=== PATIENT | female | born 1975 | race Caucasian/White ===

== ENCOUNTER 2020-01-08 16:04 | Emergency (ER) | payer SELFPAY ==
[2020-01-08 17:27] LABS: Absolute Lymphocytes (CBC) 2.3 K/uL (0.7-4.9); Basophils % 0.9 % (0-1.3); Hematocrit 40.3 % (36.0-45.0); Lymphocytes % 29.5 % (15.3-44.8); MPV 8.7 fL (7.6-11.3); RBC Red Blood Cell Count 4.08 M/uL (3.86-4.86)
[2020-01-08] MEDS ORDERED: MORPHINE 4 MG/ML SYR ONE (17:27)
[2020-01-08] MEDS ORDERED: ONDANSETRON 4 MG/2 ML VIAL ONE (17:28)
[2020-01-08 17:41] LABS: Urine Blood NEGATIVE (NEG); Urine Glucose NEGATIVE (NEG); Urine Protein NEGATIVE (NEG)
--- NOTE | 2020-01-08 17:44 | RAD REPORT ---
EXAM DESCRIPTION: CT - Stone Protocol - 01/08/2020 5:29 pm CLINICAL HISTORY: Flank pain. FLANK PAIN COMPARISON: Abdomen Pelvis W Contrast dated 06/02/2017; CT-STONE PROTOCOL dated 05/27/2012 TECHNIQUE: Axial images were obtained without oral or IV contrast. Lack of contrast limits solid org an and vascular assessment. The [id number] spans the entirety of the system partially obscuring uppermost abdomen and lung bases. Coronal reformatted images were obtained and reviewed. All CT scans are performed using dose optimization technique as appropriate and may include automated exposure control or mA/KV adjustment according to patient size. FINDINGS: The lower lung gayle are clear. Cholecystectomy clips. Imaged portions of the liver and spleen show no suspicious findings on non-contrast imaging. The panc reas and adrenal glands are normal. No pathologic lymphadenopathy in the abdomen or pelvis. 17 mm stone is present in the inferior calyx right kidney. Additional punctate seen right-sided marlena ceal calculi also noted. Several punctate left renal calculi noted without hydronephrosis. No obstruc ting calculus seen on the left. No bowel obstruction, free air, free fluid or abscess. Normal appendix noted. No significant bony abnormality. 37 mm left ovarian follicle noted. IMPRESSION: Bilateral nephrolithiasis is seen without hydronephrosis. Largest stone measures 17 mm i n the inferior calyx right kidney and is unchanged relative to comparative study.
--- NOTE | 2020-01-08 17:46 | ER ---
Nurse's Notes [facility] Name: Ariella Ray Age: 44 yrs Sex: Female : 1975 Arrival Date: 01/08/2020 Time: 16:09 Bed 5 Private MD: Diagnosis: Urinary tract infection, site not specified Presentation: 01/07 16:41 Chief complaint: Patient states: L side pain that radiates to abdomen, nausea, ph decreased urination, low grade fever, reports hx of kidney stones, denies V/D, symptoms began last night. Coronavirus screen: Patient denies a cough. Patient denies shortness of breath or difficulty breathing. Patient reports a measured and/or subjective temperature greater than 100.4F. Patient denies travel on a cruise ship or to a country the [facility] currently lists as an affected area. Patient denies contact with known and/or suspected case of COVID-19. Ebola Screen: No symptoms or risks identified at this time. Initial Sepsis Screen: Does the patient meet any 2 criteria? No. Patient's initial sepsis screen is negative. Risk Assessment: Do you want to hurt yourself or someone else? Patient reports no desire to harm self or others. Onset of symptoms was January 08, 2020. 16:41 Method Of Arrival: Ambulatory ph 16:41 Acuity: TIEN 3 ph 16:58 Initial Sepsis Screen: Does the patient have a suspected source of infection? No. ca1 Patient's initial sepsis screen is negative. 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 - Social history:: Smoking status: Patient/guardian denies using tobacco, Stopped _ months ago 8. Screenin:57 Abuse screen: Denies threats or abuse. Denies injuries from another. Nutritional ca1 screening: No deficits noted. Tuberculosis screening: No symptoms or risk factors identified. Fall Risk IV access (20 points). Assessment: 16:57 General: Appears in no apparent distress. comfortable, Behavior is calm, cooperative, ca1 appropriate for age. Pain: Complains of pain in posterior aspect of left lateral abdomen and anterior aspect of left lateral abdomen Pain currently is 7 out of 10 on a pain scale. Pain began this morning Is intermittent. Neuro: Level of Consciousness is awake, alert, obeys commands, Oriented to person, place, time, situation. Cardiovascular: Heart tones S1 S2 present Capillary refill < 3 seconds Patient's skin is warm and dry. Respiratory: Airway is patent Respiratory effort is even, unlabored, Respiratory pattern is regular, symmetrical. GI: Abdomen is flat, non-distended, Bowel sounds present X 4 quads. Abd is soft X 4 quads Abdomen is tender to palpation in posterior aspect of left lateral abdomen and anterior aspect of left lateral abdomen Reports nausea. : No signs and/or symptoms were reported regarding the genitourinary system. EENT: No signs and/or symptoms were reported regarding the EENT system. Derm: Skin is intact, is healthy with good turgor, Skin is pink, warm \T\ dry. Musculoskeletal: Circulation, motion, and sensation intact. Capillary refill < 3 seconds. 17:55 Reassessment: Patient appears in no apparent distress at this time. Patient and/or ca1 family updated on plan of care and expected duration. Pain level reassessed. Patient is alert, oriented x 3, equal unlabored respirations, skin warm/dry/pink. Vital Signs: 16:41 BP 148 / 82; Pulse 94; Resp 18; Temp 99.2(TE); Pulse Ox 99% on R/A; Weight 67.13 kg; ph Height 5 ft. 7 in. (170.18 cm); Pain 7/10; 17:55 BP 152 / 80; Pulse 89; Resp 15 S; Pulse Ox 100% on R/A; ca1 16:41 Body Mass Index 23.18 (67.13 kg, 170.18 cm) ph ED Course: 16:09 Patient arrived in ED. fj1 16:26 Sonali Valle [facility]C [facility] kb 16:26 Mitch Narvaez MD is Attending Physician. kb 16:44 Triage completed. ph 16:44 Arm band placed on Patient placed in waiting room, Patient notified of wait time. ph 16:53 Acob, Judith, RN is Primary Nurse. ca1 16:57 Patient has correct armband on for positive identification. Bed in low position. Call ca1 light in reach. Side rails up X 1. Pulse ox on. NIBP on. Warm blanket given. 17:13 Urine Microscopic Only Sent. ca1 17:13 No provider procedures requiring assistance completed. Initial lab(s) drawn, by me, ca1 sent to lab. Inserted saline lock: 20 gauge in left antecubital area, using aseptic technique. Blood collected. 17:29 CT Stone Protocol In Process Unspecified. EDMS 18:04 IV discontinued, intact, bleeding controlled, No redness/swelling at site. Pressure ca1 dressing applied. Administered Medications: 17:20 Drug: Zofran (Ondansetron) 4 mg Route: IVP; Site: left antecubital; ca1 18:00 Follow up: Response: No adverse reaction; Nausea is decreased ca1 17:22 Drug: morphine 4 mg {Note: rass 0.} Route: IVP; Site: left antecubital; ca1 18:00 Follow up: Response: No adverse reaction; Pain is decreased; RASS: Alert and Calm (0) ca1 17:47 Drug: Rocephin 1 grams Route: IV; Rate: calculated rate; Site: left antecubital; ca1 18:00 Follow up: Response: No adverse reaction; IV Status: Completed infusion ca1 Outcome: 17:45 Discharge ordered by . kb 18:04 Discharged to home ambulatory. ca1 18:04 Condition: stable 18:04 Discharge instructions given to patient, Instructed on discharge instructions, follow up and referral plans. no drinking with medication, no driving heavy equipment, Demonstrated understanding of instructions, follow-up care, medications, Prescriptions given X 3. 18:06 Patient left the ED. ca1 Addendum: 01/11/2020 07:41 Addendum: Culture Results: Positive urine culture. No further action required. Bacteria a a5 sensitive to prescribed antibiotic. Signatures: Dispatcher [employer] EDMS Sonali Valle FNP-C FNP-Ckb Calderon, Audri, RN RN aa5 Nora Etienne RN RN Judith Layton RN RN ca1 Sergio aDn [facility]
--- NOTE | 2020-01-08 17:46 | EDPHYS ---
Physician Documentation [facility] Name: Ariella Ray Age: 44 yrs Sex: Female : 1975 Arrival Date: 01/08/2020 Time: 16:09 Bed 5 Private MD: LORI Physician Mitch Narvaez HPI: 01/07 17:21 This 44 yrs old Female presents to ER via Ambulatory with complaints of SIDE kb PAIN. 17:21 The patient complains of pain in the left flank. The pain radiates to the left upper kb quadrant and left lower quadrant. Onset: The symptoms/episode began/occurred this morning. Modifying factors: The symptoms are alleviated by nothing. the symptoms are aggravated by nothing. Associated signs and symptoms: Pertinent positives: fever, urinary frequency, Pertinent negatives: diarrhea, dizziness, dysuria, headache, hematuria, nausea, pain radiating to the lower extremities, vomiting. Severity of pain: At its worst the pain was moderate in the emergency department the pain is unchanged. The patient has experienced similar episodes in the past. The patient has not recently seen a physician. Pt reports left flank pain and left abd pain that started this morning. fever started a few days ago. reports urinary frequency and small amounts. . 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 - Social history:: Smoking status: Patient/guardian denies using tobacco, Stopped _ months ago 8. ROS: 17:19 Constitutional: Negative for fever, chills, and weight loss, Cardiovascular: Negative kb for chest pain, palpitations, and edema, Respiratory: Negative for shortness of breath, cough, wheezing, and pleuritic chest pain, Back: Negative for injury and pain, MS/Extremity: Negative for injury and deformity, Skin: Negative for injury, rash, and discoloration, Neuro: Negative for headache, weakness, numbness, tingling, and seizure. 17:19 Abdomen/GI: Positive for abdominal pain, Negative for nausea, vomiting, and diarrhea, constipation. 17:19 : Positive for flank pain, urinary frequency, small amounts, difficulty urinating. Exam: 17:19 Constitutional: This is a well developed, well nourished patient who is awake, alert, kb and in no acute distress. Head/Face: Normocephalic, atraumatic. Chest/axilla: Normal chest wall appearance and motion. Nontender with no deformity. No lesions are appreciated. Cardiovascular: Regular rate and rhythm with a normal S1 and S2. No gallops, murmurs, or rubs. Normal PMI, no JVD. No pulse deficits. Respiratory: Lungs have equal breath sounds bilaterally, clear to auscultation and percussion. No rales, rhonchi or wheezes noted. No increased work of breathing, no retractions or nasal flaring. Skin: Warm, dry with normal turgor. Normal color with no rashes, no lesions, and no evidence of cellulitis. MS/ Extremity: Pulses equal, no cyanosis. Neurovascular intact. Full, normal range of motion. Neuro: Awake and alert, GCS 15, oriented to person, place, time, and situation. Cranial nerves II-XII grossly intact. Motor strength 5/5 in all extremities. Sensory grossly intact. Cerebellar exam normal. Normal gait. 17:19 Abdomen/GI: Inspection: abdomen appears normal, Bowel sounds: normal, in all quadrants, Palpation: soft, in all quadrants, moderate abdominal tenderness, in the left upper quadrant and left lower quadrant. 17:19 Back: CVA tenderness, that is moderate, is noted on the left. Vital Signs: 16:41 BP 148 / 82; Pulse 94; Resp 18; Temp 99.2(TE); Pulse Ox 99% on R/A; Weight 67.13 kg; ph Height 5 ft. 7 in. (170.18 cm); Pain 7/10; 17:55 BP 152 / 80; Pulse 89; Resp 15 S; Pulse Ox 100% on R/A; ca1 16:41 Body Mass Index 23.18 (67.13 kg, 170.18 cm) ph MDM: 16:52 Patient medically screened. kb 17:19 Data reviewed: vital signs, nurses notes. Data interpreted: Pulse oximetry: on room air kb is 99 %. Interpretation: normal. 17:43 Counseling: I had a detailed discussion with the patient and/or guardian regarding: the kb historical points, exam findings, and any diagnostic results supporting the discharge/admit diagnosis, lab results, radiology results, the need for outpatient follow up, a family practitioner. 01/07 16:47 Order name: Urine Microscopic Only 01/07 16:53 Order name: Basic Metabolic Panel; Complete Time: 17:36 kb 01/07 16:53 Order name: CBC with Diff; Complete Time: 17:43 kb 01/07 17:04 Order name: Urine Dipstick--Ancillary (enter results); Complete Time: 17:42 mt 01/07 17:16 Order name: Urine --Ancillary (enter results); Complete Time: 17:42 mt 01/07 17:57 Order name: Urine Culture EDDC 01/07 16:47 Order name: Urine Dipstick-Ancillary (obtain specimen); Complete Time: 17:12 kb 01/07 16:47 Order name: CT Stone Protocol 01/07 16:53 Order name: IV Saline Lock; Complete Time: 17:12 kb 01/07 16:53 Order name: Labs collected and sent; Complete Time: 17:13 kb Administered Medications: 17:20 Drug: Zofran (Ondansetron) 4 mg Route: IVP; Site: left antecubital; ca1 18:00 Follow up: Response: No adverse reaction; Nausea is decreased ca1 17:22 Drug: morphine 4 mg {Note: rass 0.} Route: IVP; Site: left antecubital; ca1 18:00 Follow up: Response: No adverse reaction; Pain is decreased; RASS: Alert and Calm (0) ca1 17:47 Drug: Rocephin 1 grams Route: IV; Rate: calculated rate; Site: left antecubital; ca1 18:00 Follow up: Response: No adverse reaction; IV Status: Completed infusion ca1 Disposition: 18:12 Co-signature as Attending Physician, Mitch Narvaez MD I agree with the assessment and chucho plan of care. Disposition: 01/08/20 17:45 Discharged to Home. Impression: Urinary tract infection, site not specified. - Condition is Stable. - Discharge Instructions: Urinary Tract Infection, Adult, [id number]. - Prescriptions for Augmentin 875- 125 mg Oral Tablet - take 1 tablet by ORAL route every 12 hours for 10 days; 20 tablet. Zofran 4 mg Oral Tablet - take 1 tablet by ORAL route every 6 hours As needed; 20 tablet. Tramadol 50 mg Oral Tablet - take 1 tablet by ORAL route every 8 hours as needed; 12 tablet. - Medication Reconciliation Form, Thank You Letter, Antibiotic Education, Prescription Opioid Use form. - Follow up: Emergency Department; When: As needed; Reason: Worsening of condition. Follow up: Private Physician; When: 2 - 3 days; Reason: Recheck today's complaints, Continuance of care, Re-evaluation by your physician. Signatures: Dispatcher [employer] EDMS Sonali Valle, COMMERCIAL ELECTRICIAN-C MARVEL-Mitch Jane MD MD cha Hall, Patricia RN RN Judith Layton RN RN ca1 Corrections: (The following items were deleted from the chart) 18:06 17:45 01/08/2020 17:45 Discharged to Home. Impression: Urinary tract infection, site ca1 not specified. Condition is Stable. Discharge Instructions: Urinary Tract Infection, Adult, [id number]. Prescriptions for Augmentin 875-125 mg Oral Tablet - take 1 tablet by ORAL route every 12 hours for 10 days; 20 tablet, Zofran 4 mg Oral Tablet - take 1 tablet by ORAL route every 6 hours As needed; 20 tablet, Tramadol 50 mg Oral Tablet - take 1 tablet by ORAL route every 8 hours as needed; 12 tablet. and Forms are Medication Reconciliation Form, Thank You Letter, Antibiotic Education, Prescription Opioid Use. Follow up: Emergency Department; When: As needed; Reason: Worsening of condition. Follow up: Private Physician; When: 2 - 3 days; Reason: Recheck today's complaints, Continuance of care, Re-evaluation by your physician. kb
[2020-01-08] MEDS ORDERED: CEFTRIAXONE/SWI 1gm 1 GM/10 ML SYR ONE (17:52)
[2020-01-08 17:55] LABS: Urine Bacteria LOADED /HPF (<20); Urine Culture Reflex Order REFLEXED; Urine RBC NONE SEEN /HPF (NONE SEEN)
[2020-01-08 18:57] VITALS: TEMP 99.2
[2020-01-08 18:58] VITALS: BP 152/80; O2SAT 100
== END 2020-01-08 18:06 | disposition home or self-care (01) ==
LOC: ER 16:04
DX: N39.0 Urinary tract infection, site not specified (principal); Z88.1 Allergy status to other antibiotic agents; Z88.2 Allergy status to sulfonamides; Z88.6 Allergy status to analgesic agent
CPT/HCPCS: 36415; 74176; 76377; 80048; 81003; 81015; 81025; 85025; 87077; 87086; 87088; 87186; 96374; 96375; 99284; J0696; J2405

== ENCOUNTER 2020-10-28 14:35 | Emergency (ER) | payer SELFPAY ==
--- OUTSIDE RECORDS SUMMARY | 2020-10-28 14:38 | XMS REPORT | Continuity of Care Document ---
:1975 Author Organization [facility] t Address [address] [place] [address] [address] [place] [address] Care Team Providers Name Role Phone Unavailable Unavailable Unavailable Problems This patient has no known problems. Allergies, Adverse Reactions, Alerts This patient has no known allergies or adverse reactions. Medications This patient has no known medications. Procedures This patient has no known procedures. Results This patient has no known results.
[2020-10-28] MEDS ORDERED: NA CHLORIDE 0.9% 1,000 ML ONE (15:55)
[2020-10-28] MEDS ORDERED: CEFTRIAXONE/SWI 1gm 1 GM/10 ML SYR ONE (15:56)
[2020-10-28] MEDS ORDERED: AZITHROMYCIN 500 MG/250 ML BAG IV SCH (16:00)
[2020-10-28 16:06] LABS: Basophils % 0.6 % (0-1.3); Hematocrit 51.9 % (36.0-45.0); Lymphocytes % 28.8 % (15.3-44.8); MPV 9.2 fL (7.6-11.3); RBC Red Blood Cell Count 5.19 M/uL (3.86-4.86)
[2020-10-28 16:27] LABS: Albumin 4.3 g/dL (3.4-5.0); Bilirubin Total 0.5 mg/dL (0.2-1.0); Protein, Total 8.4 g/dL (6.4-8.2)
--- NOTE | 2020-10-28 16:35 | RAD REPORT ---
EXAM DESCRIPTION: [place] Single View10/28/2020 4:10 pm CLINICAL HISTORY: Cough COMPARISON: 2011 FINDINGS: The lungs appear clear of acute infiltrate. The heart is normal size IMPRESSION: No acute abnormalities displayed
--- NOTE | 2020-10-28 16:45 | ER ---
Nurse's Notes [facility] Name: Ariella Ray Age: 45 yrs Sex: Female : 1975 Arrival Date: 10/28/2020 Time: 14:40 Bed 16 Private MD: Diagnosis: Fever, unspecified;Cough;Diarrhea, unspecified;Bronchitis, not specified as acute or chronic Presentation: 10/28 14:59 Chief complaint: Patient states: 1 WK COUGH, FEVER, PURCELL AND LOSS OF APPETITE. bp Coronavirus screen: At this time, the client does not indicate any symptoms associated with coronavirus-19. Ebola Screen: No symptoms or risks identified at this time. Initial Sepsis Screen: Does the patient meet any 2 criteria? HR > 90 bpm. No. Patient's initial sepsis screen is negative. Does the patient have a suspected source of infection? No. Patient's initial sepsis screen is negative. Risk Assessment: Do you want to hurt yourself or someone else? Patient reports no desire to harm self or others. Onset of symptoms is unknown. 14:59 Method Of Arrival: Ambulatory bp 14:59 Acuity: TIEN 3 bp Triage Assessment: 15:01 General: Appears distressed, uncomfortable, Behavior is calm, cooperative, appropriate bp for age. Pain: Complains of pain in head. EENT: Reports nasal congestion. Neuro: Level of Consciousness is awake, alert, obeys commands, Oriented to Appropriate for age Reports headache. Cardiovascular: No deficits noted. Respiratory: Reports cough that is. GI: No signs and/or symptoms were reported involving the gastrointestinal system. : No signs and/or symptoms were reported regarding the genitourinary system. Derm: No deficits noted. Musculoskeletal: No deficits noted. 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 - Social history:: Smoking status: Patient reports the use of cigarette tobacco products, smokes one pack cigarettes per day. Screenin:03 Abuse screen: Denies threats or abuse. Denies injuries from another. Nutritional bp screening: No deficits noted. Tuberculosis screening: No symptoms or risk factors identified. Fall Risk None identified. Assessment: 15:03 General: SEE TRIAGE NOTE. bp 15:23 General: Appears in no apparent distress. comfortable, Behavior is calm, cooperative. vg1 Pain: Complains of pain in head and throat Pain currently is 5 out of 10 on a pain scale. Pain began about a week ago. Neuro: Level of Consciousness is awake, alert, obeys commands, Oriented to person, place, time, situation. Cardiovascular: Patient's skin is warm and dry. Respiratory: Reports cough that is non-productive, pain with cough Airway is patent Respiratory effort is even, unlabored, Breath sounds are clear bilaterally. GI: Abdomen is flat, non-distended, Reports diarrhea, nausea, vomiting. : No signs and/or symptoms were reported regarding the genitourinary system. EENT: Throat is reddened. Derm: Skin is intact, is healthy with good turgor. Musculoskeletal: Circulation, motion, and sensation intact. 18:19 Reassessment: Patient appears in no apparent distress at this time. Patient and/or vg1 family updated on plan of care and expected duration. Pain level reassessed. Patient is alert, oriented x 3, equal unlabored respirations, skin warm/dry/pink. Vital Signs: 14:59 BP 158 / 94; Pulse 94; Resp 16; Temp 97.4; Pulse Ox 98% ; bp 15:25 BP 164 / 90; Pulse 104; Resp 18; Temp 98.0(O); Pulse Ox 100% on R/A; vg1 16:00 BP 154 / 81; Pulse 84; Resp 16; Pulse Ox 100% on R/A; vg1 17:00 BP 139 / 79; Pulse 80; Resp 16; Pulse Ox 100% on R/A; vg1 ED Course: 14:40 Patient arrived in ED. ds1 14:56 Mitch Narvaez MD is Attending Physician. chucho 15:00 Triage completed. bp 15:01 Arm band placed on. bp 15:03 Patient has correct armband on for positive identification. Bed in low position. Call bp light in reach. Side rails up X2. 15:16 Suki Meadows, RN is Primary Nurse. vg1 15:45 COVID swab sent to lab. Flu and/or RSV swab sent to lab. Strep swab sent to lab. vg1 15:52 First set of blood cultures drawn. vg1 15:55 Initial lab(s) drawn, by nm, sent to lab. Inserted saline lock: 20 gauge in left vg1 antecubital area, using aseptic technique. Blood collected. 16:10 Chest Single View XRAY In Process Unspecified. EDMS 18:19 No provider procedures requiring assistance completed. IV discontinued, intact, vg1 bleeding controlled, No redness/swelling at site. Pressure dressing applied. Administered Medications: 16:05 Drug: NS 0.9% 1000 ml Route: IV; Rate: 1 bolus; Site: left antecubital; vg1 18:19 Follow up: IV Status: Completed infusion; IV Intake: 1000ml vg1 16:05 Drug: Rocephin - (cefTRIAXone) 1 grams Route: IVPB; Infused Over: 30 mins; Site: left vg1 antecubital; 16:29 Follow up: IV Status: Completed infusion vg1 16:30 Drug: Zithromax (azithromycin) 500 mg Route: IVPB; Infused Over: 1 hrs; Site: left vg1 antecubital; 18:18 Follow up: IV Status: Completed infusion; IV Intake: 250ml vg1 18:18 Drug: Tylenol 650 mg Route: PO; vg1 18:18 Follow up: Response: Medication administered at discharge. vg1 Intake: 18:18 IV: 250ml; Total: 250ml. vg1 18:19 IV: 1000ml; Total: 1250ml. vg1 Outcome: 16:44 Discharge ordered by . chucho 18:19 Discharged to home ambulatory. vg1 18:19 Condition: stable 18:19 Discharge instructions given to patient, Instructed on discharge instructions, follow up and referral plans. medication usage, Demonstrated understanding of instructions, follow-up care, medications, Prescriptions given X 4. 18:20 Patient left the ED. vg1 Signatures: Dispatcher [employer] Mitch Silverman MD MD cha Sanford, Demi ds1 Jose Miguel Reddy, JARRETT FARIAS bp Suki Meadows, RN RN vg1
--- NOTE | 2020-10-28 16:45 | EDPHYS ---
Physician Documentation [facility] Name: Ariella Ray Age: 45 yrs Sex: Female : 1975 Arrival Date: 10/28/2020 Time: 14:40 Bed 16 Private MD: ED Physician Mitch Narvaez HPI: 10/28 15:28 This 45 yrs old Female presents to ER via Ambulatory with complaints of chucho Cough, Fever. 15:28 The patient or guardian reports cough, flu symptoms. Onset: The symptoms/episode chucho began/occurred 3 day(s) ago. Severity of symptoms: At their worst the symptoms were mild, in the emergency department the symptoms are unchanged. Associated signs and symptoms: Pertinent positives: fever, nausea, sore throat, vomiting. The patient has experienced similar episodes in the past, a few times. PT SITTER: 15:01 LMP 10/20/2020 bp Historical: - Allergies: 15:01 Aleve; bp 15:01 Ciprofloxacin; bp 15:01 ketorolac tromethamine; bp 15:01 Sulfa (Sulfonamide Antibiotics); bp 15:01 Wellbutrin; bp - Home Meds: 15:01 Lyrica Oral [Active]; bp - PMHx: 15:01 Endometrosis; Kidney stones; UTI; SHINGLES; bp - Immunization history:: Adult Immunizations up to date. - Social history:: Smoking status: Patient reports the use of cigarette tobacco products, smokes one pack cigarettes per day. ROS: 15:29 Constitutional: Negative for fever, chills, and weight loss, Eyes: Negative for injury, chucho pain, redness, and discharge, ENT: Negative for injury, pain, and discharge, Neck: Negative for injury, pain, and swelling, Cardiovascular: Negative for chest pain, palpitations, and edema, Back: Negative for injury and pain, : Negative for injury, bleeding, discharge, and swelling, MS/Extremity: Negative for injury and deformity, Skin: Negative for injury, rash, and discoloration, Neuro: Negative for headache, weakness, numbness, tingling, and seizure, Psych: Negative for depression, anxiety, suicide ideation, homicidal ideation, and hallucinations, Allergy/Immunology: Negative for hives, rash, and allergies, Endocrine: Negative for neck swelling, polydipsia, polyuria, polyphagia, and marked weight changes. 15:29 Respiratory: Positive for cough, "sounds productive". 15:29 Abdomen/GI: Positive for diarrhea. Exam: 15:29 Constitutional: This is a well developed, well nourished patient who is awake, alert, chucho and in no acute distress. Head/Face: Normocephalic, atraumatic. Eyes: Pupils equal round and reactive to light, extra-ocular motions intact. Lids and lashes normal. Conjunctiva and sclera are non-icteric and not injected. Cornea within normal limits. Periorbital areas with no swelling, redness, or edema. ENT: Nares patent. No nasal discharge, no septal abnormalities noted. Tympanic membranes are normal and external auditory canals are clear. Oropharynx with no redness, swelling, or masses, exudates, or evidence of obstruction, uvula midline. Mucous membranes moist. Neck: Trachea midline, no thyromegaly or masses palpated, and no cervical lymphadenopathy. Supple, full range of motion without nuchal rigidity, or vertebral point tenderness. No Meningismus. Chest/axilla: Normal chest wall appearance and motion. Nontender with no deformity. No lesions are appreciated. Cardiovascular: Regular rate and rhythm with a normal S1 and S2. No gallops, murmurs, or rubs. Normal PMI, no JVD. No pulse deficits. Respiratory: Lungs have equal breath sounds bilaterally, clear to auscultation and percussion. No rales, rhonchi or wheezes noted. No increased work of breathing, no retractions or nasal flaring. Abdomen/GI: Soft, non-tender, with normal bowel sounds. No distension or tympany. No guarding or rebound. No evidence of tenderness throughout. Back: No spinal tenderness. No costovertebral tenderness. Full range of motion. Skin: Warm, dry with normal turgor. Normal color with no rashes, no lesions, and no evidence of cellulitis. MS/ Extremity: Pulses equal, no cyanosis. Neurovascular intact. Full, normal range of motion. Neuro: Awake and alert, GCS 15, oriented to person, place, time, and situation. Cranial nerves II-XII grossly intact. Motor strength 5/5 in all extremities. Sensory grossly intact. Cerebellar exam normal. Normal gait. Psych: Awake, alert, with orientation to person, place and time. Behavior, mood, and affect are within normal limits. Vital Signs: 14:59 BP 158 / 94; Pulse 94; Resp 16; Temp 97.4; Pulse Ox 98% ; bp 15:25 BP 164 / 90; Pulse 104; Resp 18; Temp 98.0(O); Pulse Ox 100% on R/A; vg1 16:00 BP 154 / 81; Pulse 84; Resp 16; Pulse Ox 100% on R/A; vg1 17:00 BP 139 / 79; Pulse 80; Resp 16; Pulse Ox 100% on R/A; vg1 MDM: 14:56 Patient medically screened. [facility] 15:32 Differential diagnosis: Nonspecific abd pain, gastritis, viral gastroenteritis. [facility] Differential Diagnosis: Bronchitis Influenza Upper Respiratory Infection Pneumonia. Data reviewed: vital signs, nurses notes, lab test result(s), radiologic studies, plain films. Data interpreted: hedis manager: rate is 104 beats/min, rhythm is regular. Test interpretation: by ED physician or midlevel provider: ECG, plain radiologic studies. Counseling: I had a detailed discussion with the patient and/or guardian regarding: the historical points, exam findings, and any diagnostic results supporting the discharge/admit diagnosis, lab results, radiology results. 10/28 15:28 Order name: CBC with Diff [facility] 10/28 15:28 Order name: Comprehensive Metabolic Panel [facility] 10/28 15:28 Order name: Strep; Complete Time: 17:14 [facility] 10/28 15:28 Order name: Blood Culture Adult (2) [facility] 10/28 15:28 Order name: Chest Single View XRAY; Complete Time: 16:44 [facility] 10/28 15:28 Order name: CBC with Automated Diff; Complete Time: 16:44 [facility] 10/28 15:28 Order name: Comprehensive Metabolic Panel; Complete Time: 16:44 [facility] 10/28 17:10 Order name: Throat Culture [facility] 10/28 17:42 Order name: COVID-19/FLU A+B EDMS Administered Medications: 16:05 Drug: NS 0.9% 1000 ml Route: IV; Rate: 1 bolus; Site: left antecubital; vg1 18:19 Follow up: IV Status: Completed infusion; IV Intake: 1000ml vg1 16:05 Drug: Rocephin - (cefTRIAXone) 1 grams Route: IVPB; Infused Over: 30 mins; Site: left vg1 antecubital; 16:29 Follow up: IV Status: Completed infusion vg1 16:30 Drug: Zithromax (azithromycin) 500 mg Route: IVPB; Infused Over: 1 hrs; Site: left vg1 antecubital; 18:18 Follow up: IV Status: Completed infusion; IV Intake: 250ml vg1 18:18 Drug: Tylenol 650 mg Route: PO; vg1 18:18 Follow up: Response: Medication administered at discharge. vg1 Disposition: 10/28/20 16:44 Discharged to Home. Impression: Fever, unspecified, Cough, Diarrhea, unspecified, Bronchitis, not specified as acute or chronic. - Condition is Stable. - Discharge Instructions: Acute Bronchitis, Adult, Food Choices to Help Relieve Diarrhea, Adult, Diarrhea, Adult, Fever, Adult, Upper Respiratory Infection, Adult, Cough, Adult, [id number], Cough, Adult. - Prescriptions for Zofran 4 mg Oral Tablet - take 1 tablet by ORAL route every 12 hours As needed; 20 tablet. Zithromax 500 mg Oral Tablet - take 1 tablet by ORAL route once daily for 4 days; 4 tablet. Medrol (Albin) 4 mg Oral Tablets, Dose Pack - take 1 tablet by ORAL route as directed - follow package instructions; 1 packet. Albuterol Sulfate 90 mcg/actuation Inhalation - inhale 2 puff by INHALATION route every 4-6 hours; 1 Inhaler. - Medication Reconciliation Form, Thank You Letter, Antibiotic Education, Prescription Opioid Use, Work release form form. - Follow up: Private Physician; When: 2 - 3 days; Reason: Recheck today's complaints, Continuance of care, Re-evaluation by your physician. - Problem is new. - Symptoms have improved. Signatures: Dispatcher [employer] EDMS Mitch Narvaez MD MD cha Peltier, Brian, RN RN Suki Cox, RN RN vg1 Corrections: (The following items were deleted from the chart) 16:58 15:29 Influenza Screen (A \\T\\ B)+BA.LAB.BRZ ordered. [facility]TX EDMS 16:58 15:29 CORONAVIRUS+MR.LAB.BRZ ordered. [facility]TX EDMS 18:20 16:44 10/28/2020 16:44 Discharged to Home. Impression: Fever, unspecified; Cough; vg1 Diarrhea, unspecified; Bronchitis, not specified as acute or chronic. Condition is Stable. Discharge Instructions: Acute Bronchitis, Adult, Food Choices to Help Relieve Diarrhea, Adult, Diarrhea, Adult, Fever, Adult, Upper Respiratory Infection, Adult, Cough, Adult, [id number], Cough, Adult. Prescriptions for Zofran 4 mg Oral Tablet - take 1 tablet by ORAL route every 12 hours As needed; 20 tablet, Zithromax 500 mg Oral Tablet - take 1 tablet by ORAL route once daily for 4 days; 4 tablet. and Forms are Medication Reconciliation Form, Thank You Letter, Antibiotic Education, Prescription Opioid Use. Follow up: Private Physician; When: 2 - 3 days; Reason: Recheck today's complaints, Continuance of care, Re-evaluation by your physician. Problem is new. Symptoms have improved. chucho
[2020-10-28 17:42] LABS: SARS-COV-2 RT PCR NEGATIVE (NEGATIVE)
[2020-10-28] MEDS ORDERED: ACETAMINOPHEN 325 MG TABLET ONE (18:19)
[2020-10-28 18:32] VITALS: TEMP 98; O2SAT 100
[2020-10-28 18:35] VITALS: BP 139/79
== END 2020-10-28 18:20 | disposition home or self-care (01) ==
LOC: ER 14:35
DX: J40 Bronchitis, not specified as acute or chronic (principal); R19.7 Diarrhea, unspecified; R05 Cough; F17.210 Nicotine dependence, cigarettes, uncomplicated; Z20.822 Contact with and (suspected) exposure to COVID-19; Z88.1 Allergy status to other antibiotic agents; Z88.2 Allergy status to sulfonamides; Z88.6 Allergy status to analgesic agent; Z88.8 Allergy status to other drugs, medicaments and biological substances
CPT/HCPCS: 0240U; 36415; 71045; 80053; 85025; 87040; 87070; 87081; 96365; 96367; 99284; J0456; J0696; J7030